=== PATIENT | male | born 1970 | race Caucasian/White ===

== ENCOUNTER 2021-11-17 00:56 | Day surgery (SDC) | payer BC, SELFPAY ==
[2021-11-07 09:25] VITALS: BMI 30.4
--- NOTE | 2021-11-16 13:20 | PM.HPGS ---
History of Present Illness History of Present Illness Consent: Risks, benefits, and alternatives have been discussed and questions answered. Patient agrees to proceed with procedure. Chief complaint: family hx colon ca Narrative: Akil Horn is a 51 year old male who was referred for colon cancer screening. He has a family history of colon cancer Review of Systems Review of Systems: All systems reviewed & are unremarkable except as noted in HPI and below PMFSH Social History Social History Smoking status: Current every day smoker Tobacco type: e-cigarettes/vaping Alcohol intake: current Drinks per week: 10 Substance use: never Substance use type: does not use Living arrangements: with family Spiritual care concerns: No Meds Home Medications and Allergies Home Medications Medication Instructions Recorded Confirmed Type alprazolam 0.5 mg tablet 0.5 mg PO PRN 11/07/21 11/17/21 History omeprazole 20 mg capsule,delayed 20 mg PO PRN 11/07/21 11/17/21 History release Allergies Allergy/AdvReac Type Severity Reaction Status Date / Time No Known Allergies Allergy Verified 11/17/21 09:02 Exam Resp: Auscultation: clear to auscultation bilaterally Cardio: Rate: regular rate Rhythm: regular rhythm GI: GI Palp: Yes Soft to palpation and No Tenderness to palpation present (GI) Assessment and Plan Assessment and plan (1) Colon cancer screening: Code(s): Z12.11 - Encounter for screening for malignant neoplasm of colon Status: Acute Assessment and Plan: Colonoscopy with possible biopsy or polypectomy or cautery or injection of substances.
[2021-11-17 09:03] VITALS: BP 146/98; PULSE 67; RESP 18; TEMP 36.1; O2SAT 98
[2021-11-17] MEDS: LACTATED RINGERS 1,000 ML 150 ML IV CONT (09:13)
--- NOTE | 2021-11-17 09:44 | P.PNAN_ITS ---
Anes - Initial Pre Proc Eval Procedure: Operation Date: 11/17/21 10:00 Proposed Procedures p Screening Colonoscopy - Arturo Vargas MD Date/Time: 11/17/21 09:44 Surgeon: Arturo Vargas MD Pre Op Diagnosis: family hx colon ca Patient Data Age: 51 Gender: M Height: 1.78 m Weight: 93.6 kg Last Vital Signs Temp 97.0 F L 11/17/21 09:03 Pulse 67 11/17/21 09:03 Resp 18 11/17/21 09:03 BP 146/98 H 11/17/21 09:03 Pulse Ox 98 11/17/21 09:03 O2 Del Method Room Air 11/17/21 09:03 Allergies Allergy/AdvReac Type Severity Reaction Status Date / Time No Known Allergies Allergy Verified 11/17/21 09:02 Home Medications Medication Instructions Recorded Confirmed Type alprazolam 0.5 mg tablet 0.5 mg PO PRN 11/07/21 11/17/21 History omeprazole 20 mg capsule,delayed 20 mg PO PRN 11/07/21 11/17/21 History release Patient hx anesthesia problems: none Family hx anesthesia problems: none Results Review: All pre-operative results and documents have been reviewed as part of the pre- operative evaluation. PENDING SALE TO [facility] Social History Social History Smoking status: Current every day smoker Tobacco type: e-cigarettes/vaping Alcohol intake: current Drinks per week: 10 Substance use: never Substance use type: does not use Living arrangements: with family Spiritual care concerns: No Anes - Eval Final PreProcedure Day of Procedure 11/17/21 09:44 Patient weight: overweight Heart: regular rate and rhythm Lungs: clear to auscultation Airway: Mallampati scale class II Neurological: alert and oriented Last oral intake: >/= 8 hours ASA classification: II Emergent: no Anesthetic plan: proceed Anesthesia type and monitoring: general GIVS and standard monitoring Results Review: All pre-operative results and documents have been reviewed as part of the pre- operative evaluation. Informed Consent: The patient's anesthetic plan and its attendant risks and benefits were discuss ed with the patient/family/POA. Questions were solicited and answers provided to the satisfaction of the patient/family/POA.
[2021-11-17 10:06] VITALS: BP 114/71; PULSE 62; RESP 21; O2SAT 95
[2021-11-17 10:16] VITALS: BP 129/85; PULSE 56; RESP 27; O2SAT 99
[2021-11-17 10:26] VITALS: BP 134/94; PULSE 57; RESP 17; O2SAT 100
--- NOTE | 2021-11-17 13:55 | SUR.PHASEII ---
Patient called this afternoon around 1315 complaining of left groin pain. Dr Vargas spoke directly with patient and patient stated it feels like it does when he pulls a muscle or tendon. Dr Vargas instructed him to take Aleve and come to the ER if the pain is not relieved.
== END 2021-11-17 10:36 | disposition home or self-care (01) ==
PROVIDERS: PCP Internal Medicine; Visit Provider Internal Medicine Gastroenterology
PROC: 0DJD8ZZ Inspection of Lower Intestinal Tract, Via Natural or Artificial Opening Endoscopic (ICD-10-PCS; CPT 45378; principal; 2021-11-17 10:00)
DX: Z12.11 Encounter for screening for malignant neoplasm of colon (principal); Z80.0 Family history of malignant neoplasm of digestive organs; F17.290 Nicotine dependence, other tobacco product, uncomplicated
CPT/HCPCS: 45378; J2704; J7120

== ENCOUNTER 2022-02-21 21:28 | Emergency (ER) | payer BC, SELFPAY ==
--- NOTE | ~2022-02-21 | CT_ITS ---
EXAMINATION: CT abdomen pelvis w con DATE: 02/21/2022 23:53 INDICATION: Abdominal pain. Umbilical hernia became tight in painful. TECHNIQUE: Computed tomography (CT) of the abdomen and pelvis was performed with 100 CC Omnipaque 350 intravenous contrast. Automated exposure control and iterative reconstruction technique were employe d. Exam dose: 828.78 mGy-cm total exam DLP. COMPARISON: May 03, 2014 CT abdomen pelvis FINDINGS: Bilateral lower lobe calcified pulmonary granulomas. Normal heart size. No pericardial or p leural effusion. There is diffuse hepatic steatosis. No hepatic, splenic, pancreatic, and adrenal or renal space-occup fidelia mass lesion. Status post cholecystectomy. No bile duct or pancreatic duct dilatation. Small sliding hiatal hernia. No evidence of appendicitis. Minimal colonic diverticulosis; no CT evide nce of diverticulitis. No bowel obstruction, bowel wall thickening, pneumatosis or intraperitoneal fr ee air. Very small fat-containing umbilical hernia. There is a contiguous left periumbilical fat-containing h ernia measuring up to 2.1 x 2.5 cm x 2.8 cm vertical dimension, with some herniated fat. There is inc reased density of the herniated fat which may indicate some fat necrosis secondary to strangulation. Normal caliber of the abdominal aorta. No intraperitoneal or retroperitoneal or pelvic mass lesion or adenopathy or ascites. Moderate prostate enlargement. Moderate diffuse thickening of the urinary bladder wall, likely due to the prostatomegaly. Small fat-containing left inguinal hernia. Bilateral hip osteoarthritis. No suspicious osteolytic or osteoblastic lesions are noted. IMPRESSION: Approximately 2.1 x 2.5 x 2.8 cm left periumbilical fat-containing hernia; increased den sity of the herniated fat suggests strangulation and fat necrosis Very small fat-containing umbilical hernia Left inguinal fat-containing hernia Hepatic steatosis Status post cholecystectomy Small sliding hiatal hernia Reviewed, dictated and finalized at [facility] Reviewed, dictated and finalized at [facility] IMPRESSION: Approximately 2.1 x 2.5 x 2.8 cm left periumbilical fat-containing hernia; increased density of the herniated fat suggests strangulation and fat necrosis Very small fat-containing umbilical hernia Left inguinal fat-containing hernia Hepatic steatosis Status post cholecystectomy Small sliding hiatal hernia
[2022-02-21 21:46] VITALS: BP 184/96; PULSE 68; RESP 18; TEMP 37.1; O2SAT 100
--- NOTE | 2022-02-21 22:49 | ED.ABDPAIN ---
HPI - Abdominal Pain General Chief Complaint: Abdominal Pain Stated Complaint: hernia, pain Time Seen by Provider: 02/21/22 22:19 Source: RN notes reviewed History of Present Illness HPI narrative: Patient presents emergency department from home for abdominal pain. Patient states presently started prior to arrival he began to develop periumbilical abdominal pain states he has a history of an umbilical hernia for the past 10 years he states he had been doing some lifting when he felt that the hernia became more firm he states he is unable to push it back and like he normally can it became larger and then began to have belly pain around that region. States that he did have some mild nausea but did not have any vomiting or diarrhea states that following this he laid down and eventually after laying down the hernia again became soft and was able to be reduced states is never had any symptoms like this before he denies any fevers or chills chest pain shortness of breath or any other symptoms Related Data Home Medications Medication Instructions Recorded Confirmed alprazolam 0.5 mg tablet 0.5 mg PO PRN 11/07/21 11/17/21 omeprazole 20 mg capsule,delayed 20 mg PO PRN 11/07/21 11/17/21 release Allergies Allergy/AdvReac Type Severity Reaction Status Date / Time No Known Allergies Allergy Verified 02/21/22 21:46 Review of Systems Review of Systems: Gen.: Denies fevers or chills ENT: Denies congestion Respiratory: Denies shortness of breath or cough CV: Denies chest pain or palpitations GI: See HPI Musculoskeletal: Denies back pain or muscle pain Neuro: Denies numbness, tingling, weakness or focal weakness Skin: Denies rash Except as documented, all other systems reviewed and negative [facility] Past Medical History Medical History (Updated 02/22/22 @ 01:00 by Franco Castillo DO) Patient denies significant medical history Social History Social History Smoking status: Current every day smoker Tobacco type: e-cigarettes/vaping Alcohol intake: current Drinks per week: 10 Substance use: never Substance use type: does not use Spiritual care concerns: No Exam Narrative: APPEARANCE: No acute distress, nontoxic, resting in bed HEENT: Normocephalic, atraumatic, OMM RESPIRATORY: No respiratory distress, clear to auscultation bilaterally with no rhonchi wheezing or rales CARDIOVASCULAR: RRR s murmur ABDOMINAL: Soft nondistended tender to palpation around the periumbilical region umbilical hernia is present that is soft and reducible and is tender to palpation no rebound or guarding MUSCULOSKELETAl: Moves all extremities. No clubbing, cyanosis or edema. NEURO: Awake and alert. Following commands, speech normal, no focal deficits SKIN:: Warm, dry. Normal Color PSYCHIATRIC: Normal affect/mood Course Course Emergency Course: Discussed with Dr. Landis presentation work-up agrees with plan for discharge and follow-up as an outpatient Patient states that they are feeling much better at this time. States abdominal pain has resolved. Repeat abdominal exam shows the patient's abdomen to be soft and nontender. Discussed with patient results of workup and diagnosis. Discussed need for follow-up with primary care physician, reasons to return to the emergency department in proper use of medication. Patient understands and agrees to current treatment plan Vital Signs Vital signs: Vital Signs Temperature 98.7 F 02/21/22 21:46 Pulse Rate 68 02/21/22 21:46 Respiratory Rate 18 02/21/22 21:46 Blood Pressure 184/96 H 02/21/22 21:46 Pulse Oximetry 100 02/21/22 21:46 Oxygen Delivery Room Air 02/21/22 21:46 Temperature 98.3 F 02/21/22 23:37 Pulse Rate 64 02/21/22 23:37 Respiratory Rate 16 02/21/22 23:37 Blood Pressure 162/90 H 02/21/22 23:37 Pulse Oximetry 100 02/21/22 23:37 Oxygen Delivery Room Air 02/21/22 21:46 MDM - Abdominal
[2022-02-21 23:06] LABS: Basophils Absolute Auto 0.1 K/mm3 (0.0-0.1); Basophils Percent Auto 0.5 % (0.2-1.2); Eosinophils Absolute Auto 0.3 K/mm3 (0-0.3); Eosinophils Percent Auto 3.3 % (0-4.4); Hematocrit 46.8 % (42.0-52.0); Hemoglobin 16.4 g/dL (14.0-18.0); Immature Granulocyte Absolute 0.03 K/mm3 (0.00-0.031); Immature Granulocyte Percent A 0.3 % (0-0.5); Lymphocytes Absolute Auto 1.97 K/mm3 (0.9-3.2); Lymphocytes Percent Auto 21.4 % (18.3-44.2); Mean Corpuscular Hemoglobin 31.6 pg (26-34); Mean Corpuscular Volume 90.2 fl (80-100); Mean Platelet Volume 10.4 fl (7.4-10.4); Monocytes Absolute Auto 0.8 K/mm3 (0.1-0.6); Monocytes Percent Auto 8.9 % (2.6-8.5); Neutrophils Percent Auto 65.6 % (45.5-73.1); Platelet Count Result 189 k/mm3 (150-375); Red Blood Count 5.19 M/mm3 (4.6-6.20); Red Cell Distribution Width 12.1 % (11.5-14.5); White Blood Count 9.2 K/mm3 (4.5-10.0)
[2022-02-21 23:13] LABS: Appearance Urine Clear (Clear); Bilirubin Urine Negative (Negative); Blood Urine Negative (Negative); Color Urine Yellow (Yellow); Glucose Urine UA Negative (Negative); Ketones Urine Trace mg/dL (Negative); Leukocyte Esterase Ur Negative LEU/UL (Negative); Nitrate Urine Negative (Negative); Protein Urine Negative (Negative); Specific Grav Ur >= 1.030 (1.001-1.035); Urobilinogen Urine 0.2 mg/dL (<2.0); pH Urine 5.5 (5.0-9.0)
[2022-02-21 23:21] LABS: Mucus Urine Rare /lpf; RBC Urine 0-2 /hpf (0-2); Squamous Epithelial Cell Urine Rare /hpf (Few); WBC Urine 0-3 /hpf
[2022-02-21 23:22] LABS: Add Urine Microscopic? YES
[2022-02-21 23:27] LABS: Alanine Aminotransferase 56 U/L (6-50); Albumin Level 5.3 g/dL (3.5-5.1); Alkaline Phosphatase 50 U/L (38-126); Anion Gap 12 mmol/L (8-16); Aspartate Amino Transferase 44 U/L (17-59); Bilirubin,Total 1.8 mg/dL (0.2-1.3); Blood Urea Nitrogen 16 mg/dL (9-20); Calcium 9.5 mg/dL (8.4-10.2); Carbon Dioxide 28 mmol/L (22-30); Chloride 102 mmol/L (98-107); Estimated CRCL calculation 75 ml/min; Estimated Glomerular Filt Rate > 60; Glucose 86 mg/dL (65-110); Lipase 298 U/L (23-300); Potassium 4.2 mmol/L (3.4-5.0); Sodium 142 mmol/L (137-145)
[2022-02-21 23:37] VITALS: BP 162/90; PULSE 64; RESP 16; TEMP 36.8; O2SAT 100
== END 2022-02-22 01:10 | disposition home or self-care (01) ==
PROVIDERS: Emergency Provider Emergency Medicine; PCP Internal Medicine
DX: K42.9 Umbilical hernia without obstruction or gangrene (principal); F17.290 Nicotine dependence, other tobacco product, uncomplicated
CPT/HCPCS: 36415; 74177; 80053; 81001; 83690; 85025; 99284; Q9967

== ENCOUNTER 2023-01-11 11:50 | Outpatient (CLI) | payer BC, SELFPAY ==
[2023-01-11 19:42] LABS: Basophils Absolute Auto 0.1 K/mm3 (0.0-0.1); Basophils Percent Auto 0.8 % (0.2-1.2); Eosinophils Absolute Auto 0.2 K/mm3 (0-0.3); Eosinophils Percent Auto 2.7 % (0-4.4); Hematocrit 49.3 % (42.0-52.0); Hemoglobin 16.7 g/dL (14.0-18.0); Immature Granulocyte Absolute 0.06 K/mm3 (0.00-0.031); Immature Granulocyte Percent A 0.9 % (0-0.5); Lymphocytes Absolute Auto 1.57 K/mm3 (0.9-3.2); Lymphocytes Percent Auto 23.7 % (18.3-44.2); Mean Corpuscular HGB Conc 33.9 g/dl (32-36); Mean Corpuscular Hemoglobin 31.3 pg (26-34); Mean Corpuscular Volume 92.5 fl (80-100); Mean Platelet Volume 11.6 fl (7.4-10.4); Monocytes Absolute Auto 0.5 K/mm3 (0.1-0.6); Neutrophils Absolute Auto 4.2 K/mm3 (1.3-6.7); Neutrophils Percent Auto 63.9 % (45.5-73.1); Platelet Count Result 174 k/mm3 (150-375); Red Blood Count 5.33 M/mm3 (4.6-6.20); Red Cell Distribution Width 11.9 % (11.5-14.5); White Blood Count 6.6 K/mm3 (4.5-10.0)
[2023-01-11 19:50] LABS: Alanine Aminotransferase 79 U/L (6-50); Albumin Level 4.8 g/dL (3.5-5.1); Alkaline Phosphatase 47 U/L (38-126); Anion Gap 9 mmol/L (8-16); Aspartate Amino Transferase 46 U/L (17-59); Bilirubin,Total 1.3 mg/dL (0.2-1.3); Blood Urea Nitrogen 19 mg/dL (9-20); Calcium 9.3 mg/dL (8.4-10.2); Carbon Dioxide 28 mmol/L (22-30); Chloride 102 mmol/L (98-107); Cholesterol 198 mg/dL (0-200); Estimated Glomerular Filt Rate > 60; Glucose 93 mg/dL (65-110); HDL Direct 49 mg/dL; Magnesium 2.2 mg/dL (1.6-2.3); Potassium 3.9 mmol/L (3.4-5.0); Sodium 139 mmol/L (137-145); Triglycerides 141 mg/dL (<150)
[2023-01-11 20:02] LABS: LDL Cholesterol Direct 114 mg/dL
[2023-01-11 20:21] LABS: Prostate Specific Antigen 1.7 ng/mL (< OR = 4.0)
[2023-01-11 20:30] LABS: Free T4 Free Thyroxine 1.07 ng/mL (0.78-2.19)
== END 2023-01-11 11:51 | disposition home or self-care (01) ==
LOC: ANHGOSHLAB 11:52
PROVIDERS: PCP Internal Medicine; Visit Provider Internal Medicine
DX: Z00.00 Encounter for general adult medical examination without abnormal findings (principal); I10 Essential (primary) hypertension; K21.9 Gastro-esophageal reflux disease without esophagitis; N42.9 Disorder of prostate, unspecified
CPT/HCPCS: 36415; 80053; 80061; 82607; 83735; 84153; 84439; 84443; 85025